=== PATIENT | female | born 1980 | race Caucasian/White ===

== ENCOUNTER 2022-01-25 09:58 | Outpatient (REF) | payer OTHER, SELFPAY ==
[2022-01-25 10:24] LABS: MANUAL DIFF FLAG NO
[2022-01-25 10:55] LABS: Basophils Absolute Auto 0.1 X10*3/uL (0.0-0.2); Basophils Percent Auto 0.8 % (0-2); Eosinophils Absolute Auto 0.2 X10*3/uL (0.0-0.4); Eosinophils Percent Auto 2.7 % (0-4); Hematocrit 36.3 % (37.0-47.0); Hemoglobin 12.6 g/dl (12.0-16.0); Imm Gran Abs Auto 0.02 X10*3/uL (0.00-0.03); Imm Gran Pct Auto 0.3 % (0.0-0.4); Lymphocytes Absolute Auto 2.1 X10*3/uL (1.2-4.9); Lymphocytes Percent Auto 26.4 % (20-40); Mean Corpuscular HGB Conc 34.7 g/dl (31.0-35.0); Mean Corpuscular Hemoglobin 30.3 pg (27.0-33.0); Mean Corpuscular Volume 87.3 fL (80.0-98.0); Mean Platelet Volume 9.3 fL (9.4-12.3); Monocytes Absolute Auto 0.4 X10*3/uL (0.1-1.2); Monocytes Percent Auto 5.3 % (2-11); Neutrophils Absolute Auto 5.1 x10*3/uL (2.0-8.3); Neutrophils Percent Auto 64.5 % (45-73); Platelet Count 373 X10*3/uL (160-400); Red Blood Count 4.16 X10*6/uL (4.20-5.50); Red Cell Distribution Width 11.5 % (11.0-16.0); White Blood Count 7.9 X10*3/uL (4.8-10.8)
[2022-01-25 11:32] LABS: Erythrocyte Sedimentation Rate 16 MM/HR (0-20)
[2022-01-25 12:10] LABS: Folate 15.5 ng/mL (> or = 4.0); Vitamin B12 247 pg/mL (200-900)
[2022-01-25 12:14] LABS: Alanine Aminotransferase 14 U/L (0-31); Albumin Level 4.4 g/dL (3.5-5.0); Alkaline Phosphatase 49 U/L (39-117); Anion Gap 17 (12-20); Aspartate Amino Transferase 17 U/L (5-31); Bilirubin Direct < 0.2 mg/dL (0.0-0.5); Bilirubin Total 0.3 mg/dL (0.0-1.0); Blood Urea Nitrogen 16 mg/dL (9-16); Calcium 9.7 mg/dL (8.4-10.2); Carbon Dioxide 23 mmol/L (22-29); Chloride 103 mmol/L (96-108); Estimated Glomerular Filt Rate > 60; Glucose Random 104 mg/dL (60-115); Potassium 4.7 mmol/L (3.3-5.1); Sodium 138 mmol/L (135-145); Total Protein 7.1 g/dL (6.5-8.0)
[2022-01-27 17:06] LABS: Lyme Abs Screen <0.90 index
[2022-01-31 15:42] LABS: Anti Nuclear Antibody Screen POSITIVE (NEGATIVE)
[2022-02-01 10:22] LABS: IgA 145 mg/dL (47-310); IgG 827 mg/dL (600-1640); IgM 81 mg/dL (50-300)
== END 2022-01-25 09:59 | disposition home or self-care (01) ==
LOC: HO.LAB 09:58
PROVIDERS: PCP Family Medicine; Visit Provider Psychiatry & Neurology Neurology
DX: G62.9 Polyneuropathy, unspecified (principal)
CPT/HCPCS: 36415; 80048; 80076; 82607; 82746; 82784; 85025; 85652; 86038; 86039; 86334; 86617; 86618

== ENCOUNTER 2022-02-23 09:33 | Day surgery (SDC) | payer OTHER, SELFPAY ==
[2022-02-23] VITALS (9 sets, daily range): BP systolic 126–143; BP diastolic 80–99; PULSE 61–81; RESP 16–18; TEMP 36.3–37; O2SAT 97–100; BMI 25.8
--- NOTE | ~2022-02-23 | FL_ITS ---
EXAMINATION: XR LUMBAR PUNCTURE CLINICAL INFORMATION: Peripheral neuropathy. COMPARISON: None TECHNIQUE: Following explaining fluoroscopy-guided lumbar puncture procedure, benefits and risks, indications and was obtained. Patient was placed prone on fluoroscopy table and optimal site was selected by placing a marker at the L4-L5 disc level. The posterior lumbar area was cleaned and draped in the usual sterile manner with 2% chlorhexidine solution. 1% lidocaine was injected puncture site overlying the L4-L5 disc level. A 22-gauge spinal needle was advanced from the skin intrathecally at the L4-L5 disc level. After removing the stylet and observing CSF return patient was quickly placed in left lateral decubitus view and opening CSF pressure was obtained. Clear CSF fluid was collected in 4 test tubes. Postprocedure stylet was reintroduced and needle withdrawn. Complete hemostasis achieved at puncture site. Sterile Band-Aid applied postprocedure. FINDINGS: On solitary major obtained of lumbar spine the vertebral heights, alignment and disc heights are normal. No fracture or lytic or sclerotic process seen. SI joints are symmetrical and normal. The The opening CSF pressure measures 9 cm of water. Approximately 9.7 mL of clear CSF fluid was collected in 4 test tubes and sent to lab. FLUOROSCOPY TIME: 0.3 minutes DOSE AREA PRODUCT: 1.827 uGy-m2 (microgray-meter squared) FL/FL guided lumbar puncture LP IMPRESSION: Successful fluoroscopy-guided lumbar puncture performed at L4-L5 disc levels without immediate complications.
[2022-02-23 10:06] LABS: MANUAL DIFF FLAG NO
[2022-02-23 10:07] LABS: Basophils Absolute Auto 0.1 X10*3/uL (0.0-0.2); Basophils Percent Auto 0.3 % (0-2); Eosinophils Percent Auto 0.3 % (0-4); Hematocrit 34.8 % (37.0-47.0); Hemoglobin 12.1 g/dl (12.0-16.0); Imm Gran Abs Auto 0.09 X10*3/uL (0.00-0.03); Imm Gran Pct Auto 0.6 % (0.0-0.4); Lymphocytes Absolute Auto 2.9 X10*3/uL (1.2-4.9); Lymphocytes Percent Auto 20.1 % (20-40); Mean Corpuscular HGB Conc 34.8 g/dl (31.0-35.0); Mean Corpuscular Hemoglobin 30.3 pg (27.0-33.0); Mean Platelet Volume 9.2 fL (9.4-12.3); Monocytes Percent Auto 7.1 % (2-11); Neutrophils Absolute Auto 10.3 x10*3/uL (2.0-8.3); Neutrophils Percent Auto 71.6 % (45-73); Platelet Count 339 X10*3/uL (160-400); Red Cell Distribution Width 11.5 % (11.0-16.0); White Blood Count 14.4 X10*3/uL (4.8-10.8)
[2022-02-23 10:13] LABS: INTERNATIONAL NORM RATIO 0.9 (0.9-1.1)
[2022-02-23 11:32] LABS: UPreg QC Valid YES; Urine Pregnancy NEGATIVE (NEGATIVE)
[2022-02-23 14:21] LABS: Glucose CSF 72 mg/dL; Total Protein CSF 78.4 mg/dL (15-45)
[2022-02-23 14:25] LABS: Appearance CSF CLEAR; CSF Tube # 4; Color CSF COLORLESS; White Blood Cell CSF 4 MM*3
[2022-02-23 14:26] LABS: CSF Monos 10 %; CSF Other Cells % 0 %; Lymphocytes CSF 90 %; Neutrophils CSF 0 %; Red Blood Cell CSF 0 MM*3
[2022-02-23 14:45] LABS: CSF Appearance Clear, Colorless; CSF Tube # 1
[2022-02-27 00:06] LABS: Albumin, CSF 53.8 mg/dL (8.0-42.0); IgG 750 mg/dL (600-1640); IgG Synthesis Rate 2.2 mg/24 h (-9.9-3.3); IgG, CSF 5.4 mg/dL (0.8-7.7)
== END 2022-02-23 15:50 | disposition home or self-care (01) ==
PROVIDERS: Radiology Diagnostic Radiology; PCP Family Medicine; Visit Provider Radiology Diagnostic Radiology
PROC: 009U3ZZ Drainage of Spinal Canal, Percutaneous Approach (ICD-10-PCS; CPT 62270; principal; 2022-02-23 11:00)
DX: G62.9 Polyneuropathy, unspecified (principal); R20.2 Paresthesia of skin; R26.2 Difficulty in walking, not elsewhere classified; J45.909 Unspecified asthma, uncomplicated; F41.8 Other specified anxiety disorders; G47.00 Insomnia, unspecified; G43.909 Migraine, unspecified, not intractable, without status migrainosus; Z86.16 Personal history of COVID-19; Z79.899 Other long term (current) drug therapy; Z88.0 Allergy status to penicillin
CPT/HCPCS: 36415; 62328; 81025; 82042; 82945; 83916; 84157; 85025; 85610; 85730; 87015; 87070; 87205; 89051; Q9967

== ENCOUNTER 2022-03-23 09:55 | Outpatient (REF) | payer OTHER, SELFPAY ==
[2022-03-23 18:13] LABS: Blood Urea Nitrogen 11 mg/dL (9-16); Estimated Glomerular Filt Rate > 60
== END 2022-03-23 09:56 | disposition home or self-care (01) ==
LOC: HO.LAB 09:55
PROVIDERS: PCP Family Medicine; Visit Provider Psychiatry & Neurology Neurology
DX: G61.81 Chronic inflammatory demyelinating polyneuritis (principal)
CPT/HCPCS: 36415; 82565; 84520

== ENCOUNTER 2022-05-01 11:16 | Outpatient (REF) | payer OTHER, SELFPAY | END 2022-05-01 11:17 | disposition home or self-care (01) | LOC: HO.MDS 11:16 | PROVIDERS: Visit Provider Psychiatry & Neurology Neurology | DX: G61.81 Chronic inflammatory demyelinating polyneuritis (principal) | CPT/HCPCS: 96365; 96366; J1569 ==

== ENCOUNTER 2022-05-02 09:57 | Outpatient (REF) | payer OTHER, SELFPAY | END 2022-05-02 09:58 | disposition home or self-care (01) | LOC: HO.MDS 09:57 | PROVIDERS: Visit Provider Psychiatry & Neurology Neurology | DX: G61.81 Chronic inflammatory demyelinating polyneuritis (principal) | CPT/HCPCS: 96365; 96366; J1569 ==

== ENCOUNTER 2022-05-09 10:19 | Outpatient (REF) | payer OTHER, SELFPAY | END 2022-05-09 10:20 | disposition home or self-care (01) | LOC: HO.MDS 10:19 | PROVIDERS: Visit Provider Psychiatry & Neurology Neurology | DX: G61.81 Chronic inflammatory demyelinating polyneuritis (principal) | CPT/HCPCS: 96365; 96366; J1569 ==

== ENCOUNTER 2022-05-10 10:26 | Outpatient (REF) | payer OTHER, SELFPAY | END 2022-05-10 10:27 | disposition home or self-care (01) | LOC: HO.MDS 10:26 | PROVIDERS: Visit Provider Psychiatry & Neurology Neurology | DX: G61.81 Chronic inflammatory demyelinating polyneuritis (principal) | CPT/HCPCS: 96365; 96366; J1569 ==

== ENCOUNTER 2022-12-08 12:49 | Outpatient (REF) | payer OTHER, SELFPAY ==
[2022-12-08 14:24] LABS: Blood Urea Nitrogen 9 mg/dL (9-16); Estimated Glomerular Filt Rate > 60
== END 2022-12-08 12:50 | disposition home or self-care (01) ==
LOC: HO.LAB 12:49
PROVIDERS: PCP Family Medicine; Visit Provider Psychiatry & Neurology Neurology
DX: G61.81 Chronic inflammatory demyelinating polyneuritis (principal)
CPT/HCPCS: 36415; 82565; 84520

== ENCOUNTER 2024-06-16 10:14 | Outpatient (REF) | payer OTHER, SELFPAY ==
--- NOTE | ~2024-06-16 | MR_ITS ---
EXAMINATION: MR BRAIN WITHOUT AND WITH CONTRAST CLINICAL INFORMATION: Trigeminal neuralgia COMPARISON: None available. TECHNIQUE: Multiplanar, multisequence MRI of the brain was obtained before and after the intravenous administration of 7.5 mL Gadavist. FINDINGS: There is no restricted diffusion to suspect any acute or subacute ischemic changes. No magnetic susceptibility artifact either to suspect any acute or chronic hemorrhagic products or calcification. No evidence of T2 FLAIR foci that. Normal flow-void signal seen in major cerebral vasculature. Lateral ventricles are symmetrical in size and configuration without enlargement. Base of the skull reveals normal symmetry of fifth metatarsal with normal-appearing Meckel's cave. No abnormal enhancement seen in the CP angle, aaron or the Meckel's cave region. No abnormal enhancement along the skull base either. No mass or mass effect seen along the oropharynx either. Visualized optic globe, optic nerve and the periorbital soft tissues are unremarkable. Sella and parasellar regions are unremarkable. MR/MR head/brain wo/w con IMPRESSION: Unremarkable MRI brain without and with contrast. Electronically signed by: Mervin Templeton MD 06/16/2024 12:53 PM EST
[2024-06-16] MEDS: gadobutroL 7.5 ML VIAL IVPUSH (11:27)
--- OUTSIDE RECORDS SUMMARY | 2024-06-16 11:48 | XMS_ITS | Continuity of Care Document ---
Author Organization [facility], Main Office Address [address] [facility] [address] [place] [address] Care Team Providers Care Employment Program Representative Name Role Phone SALLY HAND Primary Care Provider [facility] Continuity Coordinator [facility] Sleep Medi cine ALPA PABLO Neurologist AYALA CONWAY Apprentice Embalmer [place] [address] WOMEN? 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 Plan of Treatment Reminders Order Date Submit Date Provider Last Modified By Organization Details Last Modified Time Details Appointments FOLLOW UP 30MIN 2024 03:30P M Sally Hand MD Not available Not available Not available Lab None recorded. Referral None recorded. Procedures None recorded. Surgeries None recorded. Imaging None recorded. Medication Orders escitalop myriam 10 mg tablet 2024 025 [facility]acy #[id number], [address] [place], [address], 05/27/2024 09:49:44 Patient TargetsNo targets recorded. Patient Instructions Encounter Date Encounter Id Patient Instructions Last Modified By Organization Details Last Modified Time 05/27/2024 [id number] Medications (OTC , herbal therapies, supplements) reviewed and reconciled with patient and or caregiver, including potential side effects, drug interactions, instructions, and the consequences of not taking medication. Reviewed potential barriers to medication adherence, such as side effects from medication or cost of medication. [email or web address] Not available 05/27/2024 09:29:06 Reason for Referral None Reported. Problems Name Problem SNOMED Code Status Onset Date Resolution Date Notes Provider Name and Address Organization Details Recorded Time Mixed anxiety and depressiv e disorder 771599932 Active 2021 Sally Hand MD [address] [facility] [address], [place], [address], [facility] 2 17:34:23 History of SARS-CoV- 2 50956502625 5907988 Active 2021 Roger Ramirez MA null, [facility] 2 13:21:21 History of calculus of kidney 236515157 Active 2012 Yaquelin ventura MA null, [facility] 2 13:35:13 Repair of umbilical hernia Completed 201106/16/2022 Sally Hand MD [address] [facility] [address], [place], [address], [facility] 3 12:46:51 Asthma 607464840 Active 2021 Sally Hand MD [address] [facility] [address], [place], [address], [facility] 2 13:52:54 Acute inflammat ory demyelina ting polyneuro florentino 62241130683 109 Completed 202106/16/2022 Sally Hand MD [address] 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 294739927 Active 2022 Sally Hand MD [address] [facility] [address], [place], [address], [facility] 3 12:46:10 History of repair of umbilical hernia 745110675 Active 2022 Sally Hand MD [address], [place], [address], [facility] 3 12:46:46 Acute on chronic pancreati tis 459884821 Completed 202209/22/2023 Sally Hand MD [address], [place], [address], [facility] 4 17:11:49 Alcohol dependenc e 17108503 Completed 202209/22/2023 Sally Hand MD [address], [place], [address], [facility] 4 17:11:23 Generaliz ed onset epileptic seizure 598518003 Active 2022 Sally Hand MD [address], [place], [address], [facility] 3 12:47:22 Essential hypertens ion 11153160 Active 2022 Sally Hand MD [address], [place], [address], [facility] 3 12:56:00 Subclinic al hypothyro idism 54922806 Active 2022 Sally Hand MD [address], [place], [address], [facility] 3 16:48:21 Neuropath y 636503277 Active 2022 Sally Hand MD [address], [place], [address], [facility] 3 16:52:53 Body mass index 30+ - obesity 810184382 Completed 202209/22/2023 Sally aHnd MD [address], [place], [address], [facility] 4 17:12:05 Obesity 955486621 Completed 202209/22/2023 Sally Hand MD [address] [facility] [address], [place], [address], [facility] 4 17:13:01 Thyroid nodule 712335534 Active 2023 Sally Hand MD [address] [facility] [address], [place], [address], [facility] 4 19:57:28 History of deliberat e self harm 607855028 Active 2023 Sally Hand MD [address] [facility] [address], [place], [address], [facility] 4 17:08:03 Chronic alcoholis m in remission 146977469 Active 2023 Sally Hand MD [address] [facility] [address], [place], [address], [facility] 4 17:11:07 History of pancreati tis 27972590333 107 Active 2023 Sally Hand MD [address] [facility] [address], [place], [address], [facility] 4 17:11:47 Disorder of autonomic nervous system 55058324 Active [address] cyndi Poole PA-C [address] [facility] [address], [place], [address], [facility] 4 16:18:30 Abnormal liver function 62296822 Completed 202312/28/2023 Sally Hand MD [address] [facility] [address] [place], [address], [facility] 4 10:57:35 Unintenti onal weight loss 948142601 Completed 202312/28/2023 Sally Hand MD [address] [facility] [address], [place], [address], [facility] 4 11:02:15 Abnormal feces 347575132 Completed 202312/28/2023 Sally Hand MD [address], [place], [address], [facility] 4 10:57:09 Electroni c cigarette user 111680301 Active 2023 Sally Hand MD [address], [place], [address], [facility] 4 11:02:46 Problem Notes None recorded. Procedures Surgical History Date Name Laterality Status Provider Name and Address Organization Details Recorded Time 05/17/19 24 endoscopic endometrial polypectomy completed Sally Hand MD [address], [place], [address], [facility] 12/28/2023 11:09:10 01/26/20 23 Most Recent Mammogram completed Joceline Bingham [facility] 01/26/2023 11:36:23 10/31/19 23 procedure on vein completed Yaquelin heart MA [facility] 05/01/2023 15:59:50 03/18/20 13 Caesarean Section completed Rgoer Ramirez MA [facility] 09/27/2021 13:13:08 07/16/19 13 Hernia Repair completed Roger Ramirez MA [facility] 09/27/2021 13:13:08 11/15/19 07 Tonsillectomy completed Roger Ramirez MA [facility] 09/27/2021 13:13:08 11/15/19 06 Adenoidectomy completed Roger Ramirez MA [facility] 09/27/2021 13:13:08 Imaging Results None recorded. Procedure Notes None recorded. Medical Equipment None Reported. Allergies Allergen ID Allergen Name Allergen Category Reaction Reaction Severity Criticality Documentation Date Start Date Code Code System Note Provider Name and Address Organization Details Recorded Time 25697 Product containin g penicilli n (product) medicatio n rash Not available Not available 09/27/2021 13658 8001 SNOMED Roger Ramirez MA [facility] 2 13:11:47 Medications Name Sig Start Date Stop Date Status Note LastModified by Organization Details LastModified Time folic acid 400 mcg tabs 12/27 completed ON HOLD Not Available Not Available Not Available feverfew 500 mg capsule Take 1 capsule every day by oral route. 12/27 completed Not Available Not Available Not Available tizanidin e 2 mg tablet TAKE 2-3 TABLETS ORALLY A DAY PRN 09/20 completed Not Available Not Available Not Available ondansetr on HCl 8 mg tablet TAKE 1 TABLET BY MOUTH EVERY DAY NEEDED FOR NAUSEA AND VOMITING 11/29 completed Not Available Not Available Not Available famotidin e 40 mg tablet Take 1 tablet every day by oral route before meal(s) for 90 days. active Not Available Not Available No t Available prednison e 20 mg tablet TAKE 1 TABLET BY MOUTH TWICE A DAY FOR 90 DAYS 06/16 completed Not Available Not Available Not Available hydroxyzi ne HCl 50 mg tablet TAKE 1 TABLET BY MOUTH THREE TIMES A DAY NEEDED 08/12 completed Not Available Not Available Not Available folic acid 400 mcg tablet TAKE 1 TABLET BY MOUTH EVERY DAY FOR 30 DAYS 10/31 completed Not Available Not Available Not Available sulfameth oxazole 800 mg-trimet hoprim 160 mg tablet TAKE 1 TABLET BY MOUTH EVERY 12 HOURS FOR 10 DAYS 09/01 completed Not Available Not Available Not Available lidocaine -prilocai ne 2.5 %-2.5 % topical cream 10/31 completed Not Available Not Available Not Available baclofen 20 mg tablet Take 1 tablet as needed by oral route at bedtime for 30 days. 09/20 completed Not Available Not Available Not Available mycopheno late mofetil 500 mg tablet TAKE 1 TABLET BY MOUTH TWICE A DAY FOR 30 DAYS 10/31 completed from neuro Not Available Not Available Not Available carbamaze pine 200 mg tablet TAKE 1 TABLET BY MOUTH TWICE A DAY FOR 30 DAYS active Not Available Not Available No t Available famotidin e 20 mg tablet Take 1 tablet every day by oral route as needed. 12/23 completed Not Available Not Available Not Available benzonata te 100 mg capsule TAKE 1 CAPSULE BY MOUTH THREE TIMES A DAY FOR 5 DAYS 07/16 completed Not Available Not Available Not Available promethaz ine 25 mg tablet TAKE 1 TABLET BY MOUTH THREE TIMES A DAY NEEDED FOR NAUSEA/V OMITING 09/27 completed Not Available Not Available Not Available bupropion HCl 75 mg tablet 05/27 completed Not Available Not Available Not Available black cohosh root extract 40 mg capsule Take 2 capsules every day by oral route. 12/27 completed ON HOLD Not Available Not Available Not Available gabapenti n 300 mg capsule TAKE ONE CAPSULE BY MOUTH AT BEDTIME FOR 30 DAYS 12/27 completed ON HOLD Not Available Not Available Not Available sertralin e 25 mg tablet TAKE 1 TABLET BY MOUTH EVERY DAY FOR 30 DAYS 06/16 completed Not Available Not Available Not Available hydroxyzi ne HCl 25 mg tablet TAKE 1 TABLET BY MOUTH THREE TIMES A DAY NEEDED FOR 7 DAYS 11/29 completed Not Available Not Available Not Available metoprolo l succinate ER 25 mg tablet,ex tended release 24 hr TAKE 1 TABLET BY MOUTH EVERY DAY 08/12 completed Not Available Not Available Not Available epinephri ne 0.3 mg/0.3 mL injection , auto-inje ctor prn active Not Available Not Available Not Available albuterol sulfate HFA 90 mcg/actua tion aerosol inhaler INHALE 2 PUFFS INTO THE LUNGS EVERY 4 HOURS NEEDED FOR 30 DAYS active Not Available Not Available No t Available cefdinir 300 mg capsule 10/31 completed Not Available Not Available Not Available sertralin e 50 mg tablet Take 1 tablet every day by oral route for 90 days. 06/16 completed Not Available Not Available Not Available vitamin B complex capsule TAKE 1 CAPSULE BY MOUTH EVERY DAY 12/27 completed ON HOLD Not Available Not Available Not Available inositol 650 mg tablet Take 1 tablet every day by oral route. 12/27 completed ON HOLD Not Available Not Available Not Available escitalop myriam 10 mg tablet TAKE 1 TABLET BY MOUTH EVERY DAY FOR 30 DAYS active Not Available Not Available No t Available valsartan 40 mg tablet TAKE 1 TABLET BY MOUTH EVERY DAY 08/12 completed Not Available Not Available Not Available cyclobenz aprine 5 mg tablet TAKE 1 TABLET BY MOUTH THREE TIMES A DAY NEEDED FOR 10 DAYS active Not Available Not Available No t Available bupropion HCl XL 150 mg 24 hr tablet, extended release TAKE 1 TABLET BY MOUTH EVERY DAY FOR 30 DAYS 08/12 completed Not Available Not Available Not Available duloxetin e 20 mg capsule,d elayed release TAKE 1 CAPSULE BY MOUTH TWICE A DAY FOR 30 DAYS 10/31 completed Not Available Not Available Not Available duloxetin e 60 mg capsule,d elayed release TAKE 1 CAPSULE BY MOUTH EVERY DAY 08/12 completed Not Available Not Available Not Available pregabali n 50 mg capsule TAKE 1 CAPSULE BY MOUTH TWICE A DAY FOR 30 DAYS 12/27 completed ON HOLD Not Available Not Available Not Available Gammagard Liquid 100ml active Not Available Not Available Not Available evening primrose oil-linol eic acid-gamo lenic acid 1,000 mg capsule Take 1 capsule every day by oral route. 12/27 completed ON HOLD Not Available Not Available Not Available vitamin B complex-v itamin C-folic acid 400 mcg tablet TAKE 1 TABLET BY MOUTH EVERY DAY 02/08 completed Not Available Not Available Not Available Vitamin D3 125 mcg (5,000 unit) tablet Take 1 tablet every day by oral route. 12/27 completed ON HOLD Not Available Not Available Not Available vitamin E (dl, acetate) 90 mg (200 unit) capsule Take 1 capsule every day by oral route. 12/27 completed ON HOLD Not Available Not Available Not Available duloxetin e 40 mg capsule,d elayed release Take 1 capsule every day by oral route at bedtime for 30 days. 12/05 completed Not Available Not Available Not Available Liver Complex 2 capsules po daily 12/27 completed contains milk thistle, dandelio n root, parsley, burdock root, black radish root, TMG, NAC, alpha lipoic acid Not Available Not Available Not Available Aspercrem e (lidocain e HCl) 4 % topical Apply 1 applicat ion as needed by topical route as directed . 12/25 completed Not Available Not Available Not Available turmeric 720 mg capsules - 2 po daily 12/27 completed ON HOLD Not Available Not Available Not Available luciana kaur extract 1300 mg capsules - 1 po daily 12/27 completed ON HOLD Not Available Not Available Not Available Vitals Date Recorded Body height Body mass index (BMI) Body weight Oxygen saturation Oxygen saturation in Arterial blood by Pulse oximetry Heart rate Body temperature Systolic blood pressure Diastolic blood pressure Provider Name and Address Organization Details Last Updated DateTime 5 163.83 cm 28.3 kg/m2 21373.3 3 g 98 % 98 % 79 /min 98.3 [degF] 117 mm[Hg] 77 mm[Hg] Leonila Ferrer MA [facility] 5 09:23:12 Social History Question Answer Notes LastModified by Organizat ion Details LastModified Time Tobacco Smoking Status [facility] 14:42:31 What Is Your Level Of Alcohol Consumption? None No Alcohol Since 09/19/21 Information not available 12/23/2021 Is Blood Transfusion Acceptable In An Emergency? Yes Information not available 09/27/2021 What Is Your Level Of Caffeine Consumption? Moderate 2-3 Cups Of Coffee Daily Information not available 12/25/2022 How Much Tobacco Do You Chew? None Information not available 09/27/2021 Are You Currently Employed? No Information not available 09/27/2021 What Type Of Diet Are You Following? REGULAR Information not available 09/27/2021 Which Illicit Or Recreational Drugs Have You Used? Marijuana Gummy For Sleep Information not available 12/25/2022 Do You Or Have You Ever Used E-cigarettes Or Vape? 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 1-5yearssince lastcigarette Information not available 12/23/2021 Do You Take Precautions To Prevent Distracted Driving? Yes Information not available 09/27/2021 How Often Do You Need To Have Someone Help You When You Read Instructions, Pamphlets, Or Other Written Material From Your Doctor Or Pharmacy? Never Information not available 09/27/2021 Have You Served In The ? No Information not available 09/27/2021 How Many Children Do You Have? 2 Diego Information not available 12/23/2021 What Is Your Current Pack Years? 10packyears [email or web address] Information not available 12/23/2021 Do You Use Protection During Sex? No Information not available 09/27/2021 Do You Use Your Seat Belt Or Car Seat Routinely? Yes Information not available 09/27/2021 Are You Sexually Active? Yes Information not available 09/27/2021 Do You Have Smoke And Carbon Monoxide Detectors In Your Home? Yes Information not available 09/27/2021 At What Age Did You Start Smoking Tobacco? 20 Quit Age 37 Information not available 12/23/2021 Are You Passively Exposed To Smoke? No Information not available 09/27/2021 Do You Or Have You Ever Used Smokeless Tobacco? Never Used Smokeless Tobacco Information not available 09/27/2021 How Much Tobacco Do You Smoke? 0.25 PPD Information not available 09/27/2021 Do You Use Any Illicit Or Recreational Drugs? Yes [email or web address] Information not available 12/23/2021 Do You Use Sunscreen Routinely? Yes Information not available 09/27/2021 How Many Years Have You Smoked Tobacco? 17 Information not available 12/23/2021 Do You Or Have You Ever Used Any Other Forms Of Tobacco Or Nicotine? Yes [email or web address] Information not available 12/23/2021 How Many Years Have You Used E-cigarettes Or Vape? 3 Since Age 39 Information not available 12/25/2022 Sex: Unknown Functional Status Question Answer Note LastModified by Organizat ion Details LastModified Time Are you able to walk? YESWOREST Information not available 06/16/2022 Are you able to care for yourself? Yes Information not available 09/27/2021 What is your exercise level? Occasional walking daily on treadmill at home Information not available 12/25/2022 Mental Status None recorded. Family History Relationship Description Onset Age of this Age Resolved Age Notes LastModified by Organization Details LastModified Time Maternal Grandmother Multiple sclerosis [email or web address] Not available 2021 13:13:07 Mother Anxiety disorder [email or web address] Not available 2021 13:13:07 Mother Depressive disorder [email or web address] s Not available 09/27/2021 13:34:35 Father Anxiety disorder [email or web address] Not available 2021 13:13:07 Father Obesity [email or web address] Not available 0 09/27/2021 13:13:07 Father Heart disease [email or web address] Not available 2021 13:13:07 Father Depressive disorder [email or web address] s Not available 09/27/2021 13:34:35 Father Essential hypertension Not available 14:23:12 Medical History Condition Response Diabetes Y Anxiety Disorder Y Varicose Veins Y Depression Y Hypothyroidism Y Anemia Y Chicken Pox Y Gynecological History Statement/Question Response Date of Last Pap Smear Date of Last Colonoscopy Most Recent Mammogram 01/25/2023 Most Recent Bone Density Obstetrics History GPAL:G 0 P 0 0 0 0 Immunizations Vaccine Type Date Status Note Provider Name and Address Organization Details Recorded Time COVID-19, mRNA, LNP-S, PF, 30 mcg/0.3 mL dose 08/14/19 21 completed ANDI Castrejon [facility] 09/27/2021 13:12:19 Tdap 09/03/19 20 completed ANDI Castrejon, [facility] 09/27/2021 13:12:19 COVID-19, mRNA, LNP-S, PF, 30 mcg/0.3 mL dose 09/05/19 21 completed ANDI Castrejon [facility] 09/27/2021 13:12:19 Influenza, split virus, trivalent, preservative 01/09/20 12 completed ANDI Castrejon [facility] 09/27/2021 13:12:19 Influenza, split virus, quadrivalent, PF 12/24/19 22 cancelled patient objection Sally Hand MD [address] [facility] [facility] [address], [place], [address], [facility] 12/23/2021 15:12:49 Past Encounters Encounter ID Performer Location Encounter Start Date Encounter Closed Date Diagnosis/Indication Diagnosis SNOMED-CT Code Diagnosis ICD10 Code Diagnosis Note [id number] Bear Virgilio WOOTEN Main Office [address] [facility] [address] [place] [address] 05/27/2024 09:06:00 05/27/2024 09:51:32 Mixed anxiety and depressive disorder 657600159 F41.8 In the process to establish with psych again, she left stepping stone. denies active thoughts of self harm or harming others. 2.25 - pt scored severe on brenda/phqsee n by Dr. 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 [id number] Jim Murray [id number] Olimpia Murray Notes Date Note Type Note Provider Name and Address Organization Details Recorded Time 05/27/2024 text/html Anxiety/Depressi on Reported bypatient.Quality: mood worse;increased anxiety Severity:denies suicidal ideations Context:major life stressors Associated Symptoms:denies homicidal ideations as per recent pt case:Good morning Dr. Hand,I really need to start a new medication for my depression and anxiety. I was finally diagnosed with ADD by Dr. Pablo 04/10. I started wellbutrin 75mg 2/day and am weaning off because it has made my mood worse. I see him next week about the ADD medication, but I need something to fix this crippling depression and anxiety.Thank you,Olimpia Murray reviewed chart - referred to dr emmanuel - seen once, did not wish to go back to him has been off wellbutrin x 8 dayshas been on psychiatric meds in past - recalls taking duloxetine in past - no recall SE x ? had increased lfts, took sertraline yrs ago - ? if had SE Bear Poole PA-C [id number] [address], [place], [address], [facility] 05/27/2024 09:53:11 OBGyn Episode No OBEpisode recorded.
--- OUTSIDE RECORDS SUMMARY | 2024-06-16 11:48 | XMS_ITS | Data Portability ---
Author Organization [facility], Main Office Address [address] [facility] [address] [place] [address] Care Team Providers Care Pilot Highway Patrol Name Role Phone AMARA HAND Primary Care Provider [facility] Cathode Maker [phone] [facility] Sleep Medi cine ALPA PABLO Neurologist AYALA CONWAY Work Ticket Distributor [phone] [facility] Gusset Edger JAROCHO MARIO Vascular Surgeon [facility] Business Functional Analyst Assessment Encounter Date Assessment Date Assessment LastModified by Organization Details LastModified Time 09/21/2023 09/21/2023 I will ask Tram spain to take a at home test to rule out , although the likelihood is low given that she feels she may be in a perimenopausal state. She has reported using marijuana, and I have advised her to reduce her usage due to the potential risk of cannabinoid-induced hyperemesis. I have also asked her to stop all supplementation for now, as her liver function tests (LFTs) are elevated and the supplements may be exacerbating her nausea. Given the cessation of duloxetine, it is likely contributing to her increased anxiety and possibly worsening her neuropathic pain. She is currently on gabapentin, and will discuss with her neurologist the possibility of adjusting the dosage or switching to Lyrica. Unfortunately, we tapered her off duloxetine slowly, and her increased anxiety may be directly related to discontinuing this medication. I offered her a different regimen, but she declined and informed me that she will be consulting with a psychiatrist at [facility]. During the examination, I observed some wrist slitting, which she acknowledged and mentioned that she has stopped and that the behaviour occurred last year. She confirmed that she does not have any thoughts of self-harm or harming others at present. She also reported that she has been alcohol-free since December of last year. 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 I also noted some epigastric pain during the examination, which might indicate gastritis, although she feels her abdominal pain has improved. I prescribed famotidine 40 mg, and if her symptoms do not improve, I advised considering [id number] proton pump inhibitors (PPIs) for 14 days. I have also requested that she repeat her LFTs in two weeks to ensure the levels are trending downward and that she remains off all supplementation, except for vitamin D, B complex, and folic acid. I offered to refer her to a tool chaser given her weight loss and nausea, but she declined. I let her know that she can reach out to me immediately to arrange this if she changes her mind. It will be interesting to see if her symptoms improve after discontinuing all the supplementation she has been taking and whether her appetite improves. Olimpia denies any vomiting and reports one episode of diarrhea that has resolved. I have spent 45 minutes on this encounter. The time documented represents time spent on the day of the encounter preparing for and completing the visit. Time spent performing a physical exam, obtaining history from the patient, counseling/educating the patient in possible diagnosis and treatment options. This time is independent of any additional procedures/diagnosti c testing/interpretati ons. bri Not available 09/22/2023 17:14:08 01/24/2024 01/24/2024 Discussed with patient the signs/symptoms warranted for a return to office visit and/or an ER visit. Patient understood and agreed with the plan. Not available 01/24/2024 11:12:07 Plan of Treatment Reminders Order Date Submit Date Provider Last Modified By Organization Details Last Modified Time Details Appointments FOLL OW UP 30MI N 2024 03:30P M Amara Hand MD Not available Not available Not available Lab ed[facility] charles 2023 024 [email or web address] [facility], [address], [address], [place], [address], 01/22/2024 09:26:19 magn esiu m, seru m or plas ma 2023 024 LESLY [facility] (Centralized Electronic Ordering - All Locations), Patient Can Go To The Location Of Their Choice, [id number] 01/15/2024 03:13:21 CMP, seru m or plas ma 2023 024 LESLY [facility] (Centralized Electronic Ordering - All Locations), Patient Can Go To The Location Of Their Choice, [id number] 01/15/2024 03:13:21 prea lbum in, seru m 2023 024 LESLY [facility] (Centralized Electronic Ordering - All Locations), Patient Can Go To The Location Of Their Choice, [id number] 11/10/2023 06:08:11 vince ac dise ase sero logy pane l, seru m 2023 024 M[place] [facility] (Centralized Electronic Ordering - All Locations), Patient Can Go To The Location Of Their Choice, [id number] 11/10/2023 06:08:10 Referral phys ical ther apis t refe rral - adarsh t elbo w pain 2023 024 [email or web address] [facility], [address] [facility], [address], [place], [address], 02/21/2024 08:59:41 psyc hiat rist refe rral 2023 024 [email or web address] [facility], [address], [address], [place], [address], 12/28/2023 11:29:[address] refe rral - plea se eval for abno rmal fece s, elev ated live r enzy mes, gerd , unin tent jalen l wt loss - than k you! 2023 024 [facility], [address] [place] [address] Dr, [address], [place], [address], 06/03/2024 09:34:20 psyc hiat rist refe rral 2023 024 chuckie Not available 09/21/2023 15:45:20 Procedures None an rded . Surgeries None an rded . Imaging MAMM O, scre enin g, bila duane l - Perf orm Diag nost ic Mamm ogra m and [place] st Ultr asou nd if need ed / Perf orm Ultr asou nd Guid ed Aspi rati on and/ or Jenn st Biop sy if yeny ante d 2023 024 [email or web address] In-Office Order, Internal Use Only DO Not Attach Compendium DO Not Attach Compendium, Do Not Delete/merge, [id number] 12/28/2023 11:29:09 Medication Orders esci talo pram 10 mg tabl et 2024 025 [facility]armacy #[id number], [address] [place] [address], [address], 05/27/2024 09:49:44 cycl oben zapr ine 5 mg tabl et 2023 025 [facility]/Pharmacy #[id number], [address] [place], [address], 05/27/2024 09:23:54 famo tidi ne 40 mg tabl et 2023 024 [facility] #[id number], [address] [place] [address], [address], 12/28/2023 10:35:00 Patient TargetsNo targets recorded. Patient Instructions Encounter Date Encounter Id Patient Instructions Last Modified By Organization Details Last Modified Time 09/21/2023 [id number] alcohol detoxification and withdrawal: care instructions [email or web address] Not available 09/22/2023 17:15:56 substance use disorder: care instructions ckokar Not available 09/22/2023 17:15:56 nausea and vomiting: care instructions ckokar Not available 09/21/2023 14:21:04 neuropathic pain : care instructions ckokar Not available 09/21/2023 14:21:04 10/31/2023 [id number] gluten-free diet : care instructions pmadden Not available 10/31/2023 16:29:02 Medications (OTC , herbal therapies, supplements) reviewed and reconciled with patient and or caregiver, including potential side effects, drug interactions, instructions, and the consequences of not taking medication. Reviewed potential barriers to medication adherence, such as side effects from medication or cost of medication. pmadden Not available 10/31/2023 16:18:02 12/28/2023 [id number] Well Visit, Ages 18 to 65: Care Instructions ckokar Not available 12/28/2023 11:14:23 medical record request* [email or web address] Not available 12/31/2023 09:37:26 epilepsy: care instructions ckokar Not available 12/28/2023 11:14:22 high blood pressure: care instructions ckokar Not available 12/28/2023 11:14:23 learning about high blood pressure ckokar Not available 12/28/2023 11:14:22 learning about mood disorders ckokar Not available 12/28/2023 11:14:22 01/24/2024 [id number] Patient understands usual risk, benefits and side effects. Not available 01/24/2024 12:59:55 05/27/2024 [id number] Medications (OTC , herbal therapies, supplements) reviewed and reconciled with patient and or caregiver, including potential side effects, drug interactions, instructions, and the consequences of not taking medication. Reviewed potential barriers to medication adherence, such as side effects from medication or cost of medication. [email or web address] Not available 05/27/2024 09:29:06 Reason for Referral Psychiatrist Referral for Mi xed anxiety and depressive disorder Referring Physician: [facility], Encounter Date: 09/21/2023 Work Ticket Distributor Referral for Abnormal feces please eval for abnormal feces, elevated liver enzymes, gerd, unintentional wt loss - thank you! Referring Physician: Bear Poole, Internal Medicine, Encounter Date: 10/31/2023 Psychiatrist Referral for Mo od disorder Referring Physician: [facility], Encounter Date: 12/28/2023 Physical Therapist Referral for Pain of right elbow joint right elbow pain Referring Physician: Bronwyn Mccarthy, [facility], Encounter Date: 01/24/2024 Results Created Date Observation Date Name Description Value Unit Range Abnormal Flag Note LastModifiedBy Organization Detail LastModifiedTime 09/11/19 24 09/11/2023 HEPAT IC FUNCT ION PANEL (7) protein, total 7.5 g/dL 6.0-8. 5 Not Available [facility] ([facility]) [address] [place], [address], 09/12/2023 06:07:21 09/11/19 24 09/11/2023 HEPAT IC FUNCT ION PANEL (7) albumin 4.2 g/dL 3.9-4. 9 Not Available [facility] ([facility]) [address] [place], [address], 09/12/2023 06:07:21 09/11/19 24 09/11/2023 HEPAT IC FUNCT ION PANEL (7) bilirubin, total 0.3 mg/dL 0.0-1. 2 Not Available [facility] ([facility]) [address] [place], [address], 09/12/2023 06:07:21 09/11/19 24 09/11/2023 HEPAT IC FUNCT ION PANEL (7) alkaline phosphatase 65 IU/L 44-121 Not Available [facility] ([facility]) [address] [place], [address], 09/12/2023 06:07:21 09/11/19 24 09/11/2023 HEPAT IC FUNCT ION PANEL (7) AST (SGOT) 133 IU/L 0-40 above high normal Not Available [facility] ([facility]) [address] [place], [address], 09/12/2023 06:07:21 09/11/19 24 09/11/2023 HEPAT IC FUNCT ION PANEL (7) ALT (SGPT) 169 IU/L 0-32 above high normal Not Available [facility] ([facility]) [address] [facility] [place], [address], 09/12/2023 06:07:21 09/11/19 24 09/12/2023 HEPAT IC FUNCT ION PANEL (7) bilirubin, direct <0.10 mg/dL 0.00-0 .40 Not Available [facility] ([facility]) [address] [facility], [place], [address], 09/12/2023 06:07:21 09/11/19 24 09/12/2023 PTH INTAC T+AMAYA CIUM, IONIZ ED calcium, ionized, serum 5.0 mg/dL 4.5-5. 6 Not Available [facility] ([facility]) [address] [facility] [place], [address], 09/13/2023 06:07:53 09/11/19 24 09/13/2023 PTH INTAC T+AMAYA CIUM, IONIZ ED PTH, intact 36 pg/mL 15-65 Not Available [facility] ([facility]) [address] [facility] [place], [address], 09/13/2023 06:07:53 09/11/1909/12/2023 VITAM IN D, 25-HY DROXY vitamin D, 25-hydroxy 19.9 NG/mL 30.0-1 00.0 below low normal Vitam in D defic iency has been defin ed by the Insti tute of Medic ine and an Endoc rine Socie ty pract ice guide line as a level of serum 25-OH vitam in D less than 20 ng/mL (1,2) . The Endoc rine Socie ty went on to furth er defin e vitam in D insuf ficie ncy as a level betwe en 21 and 29 ng/mL (2). 1. IOM (Inst itute of Medic ine). 2010. Dieta ry refer ence riccardo es for calci um and D. Katey diaz [place]: The Natio [facility] Press . 2. Mychal LEE, Michi ey [place], Bisch off-F comfort i KAUR, et al. Evalu ation , treat ment, and preve ntion of vitam in D defic iency : an Endoc rine Socie ty clini amaya pract ice guide line. JCEM. 2010; 96(7) :1911 -30. Not Available [facility] ([facility]) [address] [place], [address], 09/13/2023 06:07:54 09/11/19 24 09/12/2023 PHOSP HORUS phosphorus 2.8 mg/dL 3.0-4. 3 below low normal Not Available [facility] ([facility]) [address] [place], [address], 09/13/2023 06:07:54 09/11/19 24 09/12/2023 MAGNE SIUM magnesium 1.7 mg/dL 1.6-2. 3 Not Available [facility] ([facility]) [address] [place], [address], 09/13/2023 06:07:55 11/08/19 24 11/09/2023 TSH+F REE T4 TSH 4.050 uIU/m L 0.450- 4.500 normal Not Available [facility] ([facility]) [address] [place], [address], 11/09/2023 08:09:03 11/08/19 24 11/09/2023 TSH+F REE T4 T4,free(dire ct) 1.08 NG/dL 0.82-1 .77 normal Not Available [facility] ([facility]) [address] [place], [address], 11/09/2023 08:09:03 11/08/19 24 11/09/2023 HEPAT IC FUNCT ION PANEL (7) protein, total 6.8 g/dL 6.0-8. 5 normal Not Available [facility] ([facility]) [address] [place], [address], 11/09/2023 16:06:47 11/08/19 24 11/09/2023 HEPAT IC FUNCT ION PANEL (7) albumin 4.3 g/dL 3.9-4. 9 normal Not Available [facility] ([facility]) [address] [facility] [place], [address], 11/09/2023 16:06:47 11/08/19 24 11/09/2023 HEPAT IC FUNCT ION PANEL (7) bilirubin, total <0.2 mg/dL 0.0-1. 2 Not Available [facility] ([facility]) [address] [place], [address], 11/09/2023 16:06:47 11/08/19 24 11/09/2023 HEPAT IC FUNCT ION PANEL (7) bilirubin, direct <0.10 mg/dL 0.00-0 .40 Not Available [facility] ([facility]) [address] [place], [address], 11/09/2023 16:06:47 11/08/19 24 11/09/2023 HEPAT IC FUNCT ION PANEL (7) alkaline phosphatase 53 IU/L 44-121 normal Not Available [facility] ([facility]) [address] [place], [address], 11/09/2023 16:06:47 11/08/19 24 11/09/2023 HEPAT IC FUNCT ION PANEL (7) AST (SGOT) 16 IU/L 0-40 normal Not Available [facility] ([facility]) [address] [place], [address], 11/09/2023 16:06:47 11/08/19 24 11/09/2023 HEPAT IC FUNCT ION PANEL (7) ALT (SGPT) 9 IU/L 0-32 normal Not Available [facility] ([facility]) [address] [place], [address], 11/09/2023 16:06:47 11/08/19 24 11/09/2023 ACUTE HEPAT ITIS hep A Ab, IgM Negati ve negati ve Not Available [facility] ([facility]) [address] [facility], [place], [address], 11/09/2023 16:06:48 11/08/19 24 11/09/2023 ACUTE HEPAT ITIS HBsAg screen Negati ve negati ve Not Available [facility] ([facility]) [address] [facility], [place], [address], 11/09/2023 16:06:48 11/08/19 24 11/09/2023 ACUTE HEPAT ITIS hep B core Ab, IgM Negati ve negati ve Not Available [facility] ([facility]) [address] [facility], [place], [address], 11/09/2023 16:06:48 11/08/19 24 11/09/2023 ACUTE HEPAT ITIS HCV Ab Non Reacti ve non reacti ve Not Available [facility] ([facility]) [address] [facility], [place], [address], 11/09/2023 16:06:48 11/08/19 24 11/09/2023 ACUTE HEPAT ITIS interpretati on: Commen t Not infec emerson with HCV unles s early or acute infec tion is suspe cted (whic h may be delay ed in an immun ocomp romis ed indiv idual ), or other evide nce exist s to indic ate HCV infec tion. Not Available [facility] ([facility]) [address] [facility], [place], [address], 11/09/2023 16:06:48 11/08/19 24 11/09/2023 IRON AND TIBC iron bind.cap.(TI BC) 432 ug/dL 250-45 0 normal Not Available [facility] ([facility]) [address] [facility], [place], [address], 11/09/2023 16:06:49 11/08/19 24 11/09/2023 IRON AND TIBC UIBC 396 ug/dL 131-42 5 normal Not Available [facility] ([facility]) [address] [place], [address], 11/09/2023 16:06:49 11/08/19 24 11/09/2023 IRON AND TIBC iron 36 ug/dL 27-159 normal Not Available [facility] ([facility]) [address] [place], [address], 11/09/2023 16:06:49 11/08/19 24 11/09/2023 IRON AND TIBC iron saturation 8 % 15-55 alert low Not Available [facility] ([facility]) [address] [place], [address], 11/09/2023 16:06:49 11/08/19 24 11/09/2023 ANTI- ELMO H MUSCL E/PIETRO OCHON D. actin (smooth muscle) antibody 5 units 0-19 Negat eva 0 - 19 Weak posit eva 20 - 30 Moder ate to stron g posit eva >30 Actin Antib odies are found in 52-85 % of patie nts with autoi mmune hepat itis or chron ic activ e hepat itis and in 22% of patie nts with prima ry bilia ry cirrh osis. Not Available [facility] ([facility]) [address] [place], [address], 11/09/2023 16:06:49 11/08/19 24 11/09/2023 ANTI- ELMO H MUSCL E/PIETRO OCHON D. mitochondria l (M2) antibody <20.0 units 0.0-20 .0 Negat eva 0.0 - 20.0 Equiv ocal 20.1 - 24.9 Posit eva >24.9 Mitoc hondr ial (M2) Antib odies are found in 90-96 % of patie nts with prima ry bilia ry cirrh osis. Not Available [facility] ([facility]) [address] [place], [address], 11/09/2023 16:06:49 11/08/19 24 11/09/2023 FARRUKH+L IPASE amylase 87 U/L 31-110 normal Not Available [facility] ([facility]) [address] [place], [address], 11/09/2023 16:06:50 11/08/19 24 11/09/2023 FARRUKH+L IPASE lipase 33 U/L 14-72 normal Not Available [facility] ([facility]) [address] [place], [address], 11/09/2023 16:06:50 11/08/19 24 11/09/2023 GGT GGT 3 IU/L 0-60 normal Not Available [facility] ([facility]) [address] [place], [address], 11/09/2023 16:06:51 11/08/19 24 11/09/2023 CERUL OPLAS MIN ceruloplasmi n 27.4 mg/dL 19.0-3 9.0 Not Available [facility] ([facility]) [address] [place], [address], 11/09/2023 16:06:51 11/08/19 24 11/09/2023 CARLEEN TIN ferritin 11 NG/mL 15-150 below low normal Not Available [facility] ([facility]) [address] [place], [address], 11/09/2023 16:06:52 11/08/19 24 11/09/2023 PHUONG C DISEA SE PANEL endomysial antibody IgA Negati ve negati ve Not Available [facility] ([facility]) [address] [place], [address], 11/10/2023 06:08:09 11/08/19 24 11/09/2023 PHUONG C DISEA SE PANEL T-transgluta minase (ttg) IgA <2 U/mL 0-3 Negat eva 0 - 3 Weak Posit eva 4 - 10 Posit eva >10 Tissu e Trans gluta dayanna e (tTG) has been ident ified as the endom ysial antig en. Studi es have demon str- ated that endom ysial IgA antib odies have over 99% speci ficit y for glute n sensi tive enter opath y. Not Available [facility] ([facility]) [address] [facility], [place], [address], 11/10/2023 06:08:09 11/08/19 24 11/10/2023 PHUONG C DISEA SE PANEL immunoglobul in A, qn, serum 128 mg/dL 87-352 normal Not Available [facility] ([facility]) [address] [facility], [place], [address], 11/10/2023 06:08:09 11/08/19 24 11/10/2023 PREAL BUMIN prealbumin 18 mg/dL 12-34 Not Available [facility] ([facility]) [address] [facility], [place], [address], 11/10/2023 06:08:11 08/30/19 24 08/30/2023 US, head + neck, soft tissu e US Soft Tissue Head/N raquel Reason : R94.6 ABNORM AL RESULT S OF THYROI D FUNCTI ON STUDIE S COMPAR JEFFERY: None FINDIN GS: RIGHT THYROI D LOBE: 4.4 x 1.6 x 1.2 cm, volume 4.5 cc. Normal homoge neous echote xture. Normal parenc hymal vascul arity. Nodule #1: Partia lly imaged , upper pole, 1.2 x 1.2 x 0.8 cm (trans verse right cine 8/109, sagitt al right cine 68/118 ), solid, hypoec hoic, not taller -than- wide, ill-de fined margin , no echoge zain foci. TI-RAD S Catego ry 4. Nodule #2: Lower pole at inferi ormost margin , 0.5 x 0.5 x 0.5 cm, solid, very hypoec hoic, not taller -than- wide, lobula emerson margin , no echoge zain foci. TI-RAD S Catego ry 5. Solutions Consultant al vascul ar flow noted. LEFT THYROI D LOBE: 4.2 x 1.2 x 1.4 cm, volume 3.5 cc. Normal homoge neous echote xture. Normal parenc hymal vascul arity. Nodule #1: Upper pole, 1.5 x 0.7 x 0.8 cm, predom inatel y solid, echoge nicity cannot be determ ined, not taller -than- wide, partia lly obscur ed margin , macroc alcifi cation s. TI-RAD S Catego ry 4. Additi onal scatte red subcen timete r nodule s which do not meet TI-RAD S criter ia for imagin g follow -up. ISTHMU S: Thickn ess: 0.3 cm. IMPRES MARC: 1.5 cm left upper pole 1.5 cm TI-RAD S Catego ry 4 nodule . FNA could be consid ered for furthe r evalua tion. 0.5 cm right lower pole TI-RAD S Catego ry 5 nodule . Follow -up ultras ound recomm ended in one year. In additi on, a parath yroid adenom a could have a simila r appear ance, and correl ation with parath yroid hormon e levels recomm ended. Right upper pole 1.2 cm TI-RAD S Catego ry 4 nodule . The ill-de fined appear ance of this nodule raises the possib ility of focal thyroi ditis. Correl ation with thyroi d functi on tests recomm ended, as well as follow -up ultras ound in one year. TI-RAD S 2017 refere nce: Marco Antonio garner FN, Nadya bird WD, Arsen EG, et al. ACR Thyroi d Imagin g, Report ing and Data System (TI-RA DS): White Paper of the ACR TI-RAD S Commit hong. J Am Uma Radiol . Volume 14, Issue 5 , 587 595. https: //doi. org/10 .1016/ j.jacr .2017. 01.046 ACR TI-RAD S recomm endati ons: TR1 and TR2: No FNA or follow -up. TR3: FNA if greate r than 2.4 cm, follow -up if 1.5-2. 4 cm in 1, 3 and 5 years. TR4: FNA if greate r than 1.4 cm, follow -up if 1.0-1. 4 cm in 1, 2, 3 and 5 years. TR5: FNA if greate r than 0.9 cm, follow -up if 0.5-0. 9 cm every year for 5 years. TI-RAD S calcul ator: http:/ [email or web address] Rockmelt. Minteos/ WSN: [id number] Orderi ng Physic khari: Claire Hand Dictat ed By: Mark Marcus MD Dictat ed Date/T candice: 12:28 p Review ed By: Mark Marcus MD Signed By: Mark Marcus MD Signed Date/T candice: 12:28 pm Transc ribed By: DOMENICA Transc ribed Date/T candice: 12:23 pm Patien t Class: Outpat ient [facility] (Outpt Imaging) [address] [facility], [place], [address], 09/08/2023 18:26:32 08/30/19 24 08/30/2023 US, thyro id No observ ation record ed. [email or web address] [address] [place], [address], 08/30/2023 16:29:55 Result Notes None recorded. Problems Name Problem SNOMED Code Status Onset Date Resolution Date Notes Provider Name and Address Organization Details Recorded Time Mixed anxiety and depressiv e disorder 113448397 Active 2021 Amara Hand MD [address] [facility] [address], [facility] [place], [address], [facility] 2 17:34:23 History of SARS-CoV- 2 [id number] 9469692 Active 2021 Roger Ramirez MA null, [facility] 2 13:21:21 History of calculus of kidney 768038212 Active 2012 Yaquelin ventura [facility], [facility] 2 13:35:13 Repair of umbilical hernia Completed 201106/16/2022 Amara Hand MD [address], [place], [address], [facility] 3 12:46:51 Asthma 335987775 Active 2021 Amara Hand MD [address], [place], [address], [facility] 2 13:52:54 Acute inflammat ory demyelina ting polyneuro florentino 12227163721 109 Completed 202106/16/2022 Amara Hand MD [address], [place], [address], [facility] 3 12:46:17 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 566391188 Active 2022 Amara Hand MD [address], [place], [address], [facility] 3 12:46:10 History of repair of umbilical hernia 413774038 Active 2022 Amara Hand MD [address], [place], [address], [facility] 3 12:46:46 Acute on chronic pancreati tis 556779122 Completed 202209/22/2023 Amara Hand MD [address], [place], [address], [facility] 4 17:11:49 Alcohol dependenc e 25046034 Completed 202209/22/2023 Amara Hand MD [address], [place], [address], [facility] [facility] 4 17:11:23 Generaliz ed onset epileptic seizure 296467269 Active 2022 Amara Hand MD [address], [place], [address], [facility] 3 12:47:22 Essential hypertens ion 63736646 Active 2022 Amara Hand MD [address], [place], [address], [facility] 3 12:56:00 Subclinic al hypothyro idism 16965866 Active 2022 Amara Hand MD [address], [place], [address], [facility] 3 16:48:21 Neuropath y 099253750 Active 2022 Amara Hand MD [address], [place], [address], [facility] 3 16:52:53 Body mass index 30+ - obesity 368654320 Completed 202209/22/2023 Amara Hand MD [address], [place], [address], [facility] 4 17:12:05 Obesity 125224018 Completed 202209/22/2023 Amara Hand MD [address], [place], [address], [facility] 4 17:13:01 Thyroid nodule 863599541 Active 2023 Amara Hand MD [address], [place], [address], [facility] 4 19:57:28 History of deliberat e self harm 518804864 Active 2023 Amara Hand MD [address], [place], [address], [facility] 4 17:08:03 Chronic alcoholis m in remission 371790713 Active 2023 Amara Hand MD [address], [place], [address], [facility] 4 17:11:07 History of pancreati tis 93611889104 107 Active 2023 Amara Hand MD [address], [place], [address], [facility] 4 17:11:47 Disorder of autonomic nervous system 23223410 Active [address] cyndi Poole PA-C [address], [place], [address], [facility] 4 16:18:30 Abnormal liver function 05874126 Completed 202312/28/2023 Amara Hand MD [address], [place], [address], [facility] 4 10:57:35 Unintenti onal weight loss 108614177 Completed 202312/28/2023 Amara Hand MD [address], [place], [address], [facility] 4 11:02:15 Abnormal feces 753391056 Completed 202312/28/2023 Amara Hand MD [address], [place], [address], [facility] 4 10:57:09 Electroni c cigarette user 915273630 Active 2023 Amara Hand MD [address], [place], [address], [facility] 4 11:02:46 Problem Notes None recorded. Procedures Surgical History Date Name Laterality Status Provider Name and Address Organization Details Recorded Time 05/17/19 24 endoscopic endometrial polypectomy completed Amara Hand MD [address] [facility] [address], [place], [address], [place] [facility] 12/28/2023 11:09:10 01/26/20 23 Most Recent Mammogram completed Joceline Bingham [facility] 01/26/2023 11:36:23 10/31/19 23 procedure on vein completed Yaquelin heart [place] [facility] 05/01/2023 15:59:50 03/18/20 13 Caesarean Section completed Roger Ramirez MA [facility] 09/27/2021 13:13:08 07/16/19 13 Hernia Repair completed Roger Ramirez [facility] 09/27/2021 13:13:08 11/15/19 07 Tonsillectomy completed Roger Ramirez MA [facility] 09/27/2021 13:13:08 11/15/19 06 Adenoidectomy completed Roger Ramirez [place] [facility] 09/27/2021 13:13:08 Imaging Results Imaging Date Name Status LastModified by Organiz ation Details LastModified Time 08/30/2023 US, head + neck, soft tissue completed [facility] ([facility]) [address] [place], [address], 09/08/2023 18:26:32 08/30/2023 US, thyroid completed [facility] [address], [place], [address], 08/30/2023 16:29:55 Procedure Notes None recorded. Medical Equipment None Reported. Allergies Allergen ID Allergen Name Allergen Category Reaction Reaction Severity Criticality Documentation Date Start Date Code Code System Note Provider Name and Address Organization Details Recorded Time 90378 Product containin g penicilli n (product) medicatio n rash Not available Not available 09/27/2021 106879 9613 SNOMED ANDI Castrejon, [facility] 13:11:47 Medications Name Sig Start Date Stop [...] HOLD Not Available Not Available Not Available ashwagand kaur extract 1300 mg capsules - 1 po daily 07/17/ 2024 09/13 /2024 completed ON HOLD Not Available Not Available Not Available Vitals Date Recorded Body height Body mass index (BMI) Body weight Heart rate Oxygen saturation Oxygen saturation in Arterial blood by Pulse oximetry Body temperature Systolic blood pressure Diastolic blood pressure Provider Name and Address Organization Details Last Updated DateTime 4 163.83 cm 29.7 kg/m2 23647.2 6 g 110 /min 98 % 98 % 98.7 [degF] 126 mm[Hg] 90 mm[Hg] Yaquelin ventura [place] [facility] 4 13:52:16 Date Recorded Body height Body mass index (BMI) Body weight Heart rate Oxygen saturation Oxygen saturation in Arterial blood by Pulse oximetry Body temperature Systolic blood pressure Diastolic blood pressure Provider Name and Address Organization Details Last Updated DateTime 4 163.83 cm 28.7 kg/m2 28643.7 g 92 /min 97 % 97 % 98.2 [degF] 126 mm[Hg] 81 mm[Hg] Joanne Pitt MA [facility] 4 15:45:48 Date Recorded Body height Body mass index (BMI) Body weight Heart rate Oxygen saturation Oxygen saturation in Arterial blood by Pulse oximetry Body temperature Systolic blood pressure Diastolic blood pressure Provider Name and Address Organization Details Last Updated DateTime 4 163.83 cm 28.7 kg/m2 03049.7 g 97 /min 97 % 97 % 98.2 [degF] 133 mm[Hg] 89 mm[Hg] Joanne Pitt MA [facility] 4 10:33:54 Date Recorded Body height Body mass index (BMI) Body weight Heart rate Oxygen saturation Oxygen saturation in Arterial blood by Pulse oximetry Body temperature Systolic blood pressure Diastolic blood pressure Provider Name and Address Organization Details Last Updated DateTime 4 163.83 cm 28.7 kg/m2 96745.7 g 75 /min 98 % 98 % 98.1 [degF] 110 mm[Hg] 75 mm[Hg] Rohan tyler MA [facility] 4 10:58:10 Date Recorded Body height Body mass index (BMI) Body weight Oxygen saturation Oxygen saturation in Arterial blood by Pulse oximetry Heart rate Body temperature Systolic blood pressure Diastolic blood pressure Provider Name and Address Organization Details Last Updated DateTime 5 163.83 cm 28.3 kg/m2 07321.3 3 g 98 % 98 % 79 /min 98.3 [degF] 117 mm[Hg] 77 mm[Hg] Leonila Ferrer MA [facility] 5 09:23:12 Social History Question Answer Notes LastModified by Organizat ion Details LastModified Time Tobacco Smoking Status Former Smoker ANDI Aviles, [facility] 12/23/2021 14:42:31 What Is Your Level [...] Or Vape? Current User Of Electronic Cigarettes [email or web address] Information not available 12/23/2021 What Is Your [...] How Many Children Do You Have? 2 [place] And Isabelida Information not available 12/23/2021 What Is Your Current Pack Years? 10packyears [email or web address] Information not available 12/23/2021 Do You Use [...] Use Any Illicit Or Recreational Drugs? Yes [email or web address] Information not available 12/23/2021 Do You Use Sunscreen Routinely? Yes Information not available 09/27/2021 How Many Years Have You Smoked Tobacco? 17 Information not available 12/23/2021 Do You Or Have You Ever Used Any Other Forms Of Tobacco Or Nicotine? Yes Information not available 12/23/2021 How Many Years [...] Not available 09/27/2021 13:34:35 Father Essential hypertension [email or web address] Not available 14:23:12 Medical History Condition Response Varicose Veins Y Anxiety Disorder Y Diabetes Y Anemia Y Depression Y Chicken Pox Y Hypothyroidism Y Gynecological History Statement/Question Response Date of Last Pap Smear Date of Last Colonoscopy Most Recent Mammogram 01/25/2023 Most Recent Bone Density Obstetrics History GPAL:G 0 P 0 0 0 0 Immunizations Vaccine Type Date Status Note Provider Name and Address Organization Details Recorded Time COVID-19, mRNA, LNP-S, PF, 30 mcg/0.3 mL dose 08/14/19 21 completed ANDI Castrejon [facility] 09/27/2021 13:12:19 Tdap 09/03/19 20 completed ANDI Castrejon, [facility] 09/27/2021 13:12:19 COVID-19, mRNA, LNP-S, PF, 30 mcg/0.3 mL dose 09/05/19 21 completed ANDI Castrejon [facility] 09/27/2021 13:12:19 Influenza, split virus, trivalent, preservative 01/09/20 12 completed ANDI Castrejon [facility] 09/27/2021 13:12:19 Influenza, split virus, quadrivalent, PF 12/24/19 22 cancelled patient objection Amara Hand MD [address] [address], [place], [address], [facility] 12/23/2021 15:12:49 Past Encounters Encounter ID Performer Location Encounter Start Date Encounter Closed Date Diagnosis/Indication Diagnosis SNOMED-CT Code Diagnosis ICD10 Code Diagnosis Note [id number] Rody Del Rosario Main Office [address] [place] [address] 09/27/2021 13:10:43 09/27/2021 14:22:26 Fatigue 81554443 R53.83 likely related to long covid, however will get labs Hyperlipidemia 64778574 E78.5 Hepatitis C screening 41 0872083 Z11.59 Screening for malignant neoplasm of cervix 157373079 Z12.4 Patient ne w to provider [id number] 21844 Z76.89 Patient was counseled on healthy diet, exercise and nutrition, Body mass index is 23.7kg/m?? . Last Colonoscop y:Date:Res ult:Plan: not due, asymptomat ic, no fhx Last Mammogram: Date:Resul t:Plan: not due, asymptomat ic, no fhx Last Pap smearDate: Result:Miguel Angel n: Notes last was done mid 2013, referral provided. Bone density scanDate:R esult:Plan : not due Vaccines:T dAP: 09/03/2019 hingrix: Not hnoBST20: Not dueInfluen za: not in seasonCovi d: 08/13/20, 09/04/20 Impairment of balance 38 3972319 R26.89 Could be related to neuropathy above. Dyspnea on exertion 6084 5006 R06.09 Related to post covid, will get complete echo with PFT.ECG Done in ED reviewed. Past pregn saloni history of gestational diabetes mellitus 461672730 Z86.32 Neuropathy 350026919 G62 .9 Could be related to previous etoh use.b complex and duloxetine sent.Will consider EMG if sx persist Mixed anxi ety and depressive disorder 092899325 F41.8 Component PTSD associated with covid.Will start with duloxetine augment prn hydroxyzin e, she was advised to stop promethazi ne.Risk of sedition discussed, advised to not drive, operate motor vehicle or machinery while on medication till she knows how she feels.Jesus es homicidal or suicidal Ideation. Snoring symptoms 0924284 00 R06.83 Notes had before even etoh intake, with b/l edema with snoring will get sleep study. Admits alcohol use 31762 9306 Z72.89 Notes last use >7 days ago so sx unlikely related to withdrawal .Advised to avoid all etoh beverage.W ill send b complex Tachycardia 5277928 R00. 0 Recent ED visit had poc echo, d-dimer, trop, LE doppler done, all negLikely related to anxiety.Hy dration enforced. History of SARS-CoV-2 29 23848760 54113328 Z86.16 see above Transition of care from emergency department to self-care 4482928857 70365 Z76.89 ED note reviewed. [id number] Amara Hand MD Main Office [address] [facility] [place] [address] 11/29/2021 07:50:52 11/29/2021 15:53:11 Mixed anxiety and depressive disorder 691748861 F41.8 Component PTSD associated with covid.Trie d duloxetine after she stopped etoh, lft was monitored she was on 60 notes no improvemen t wanted to stop and try zolft instead, will start cross geoff.The plan is to get her down to 40 mg extended release, and to start low-dose sertraline at 25 mgShe was reminded to recheck her liver function.S he was advised to continue to refrain from drinking alcohol.Wi ll follow up in PE. Neuropathy 653621133 G62 .9 Advised her to continue B complex with folic acid, given that we are planning to wean her off of duloxetine once she has 20 mg I will start her on low-dose gabapentin .Referral to rheumatolo gy and neurology was made to eval this further as well.EMG ordered. Asthma 412802246 J45.90 9 Pulmonary function test noted some improvemen t with bronchodil ators and she did note that she had some dyspnea post COVID I have gone ahead and thus started her on some albuterol as needed as needed. The risk of tachycardi a and jitterines s was advised she is aware to use this as needed. Diastolic dysfunction 35 48313 I51.9 She recently underwent an echo which suggests grade 1 diastolic dysfunctio n given her young age I have referred her to the cardiologi st I suspect this may be precipitat ed by her excessive alcohol intake possibly with her bout of COVID. [id number] Amara Hand MD Main Office [address] [facility] [place] [address] 12/23/2021 14:23:02 12/23/2021 15:11:46 Mixed anxiety and depressive disorder 289338755 F41.8 Component PTSD associated with covid.Trie d duloxetine after she stopped etoh, lft was monitored she was on 60 notes no improvemen t wanted to stop and try zolft instead, will start cross geoff.The plan is to get her down to 40 mg extended release, and to start low-dose sertraline at 25 mgShe was reminded to recheck her liver function.W ill taper duloxetine 20mg, start sertraline 50She was advised to continue to refrain from drinking alcohol. Neuropathy 565445609 G62 .9 Advised her to continue B complex with folic acid, given that we are planning to wean her off of duloxetine once she has 20 mg I will start her on low-dose gabapentin .Referral to rheumatolo gy and neurology was made to eval this further as well.EMG ordered. Asthma 877422780 J45.90 9 Stable on inhalers Diastolic dysfunction 35 99430 I51.9 She recently underwent an echo which suggests grade 1 diastolic dysfunctio n given her young age I have referred her to the cardiologi st I suspect this may be precipitat ed by her excessive alcohol intake possibly with her bout of COVID.Marcus gunderson card in examination 744334690 Z00.00 Patient was counseled on healthy diet, exercise and nutrition, Body mass index is 23.7kg/m?? . Last Colonoscop y:Date:Res ult:Plan: not due, asymptomat ic, no fhx Last Mammogram: Date:Resul t:Plan: not due, asymptomat ic, no fhx Last Pap smearDate: Result:Miguel Angel n: Notes last was done mid 2013, referral provided. Bone density scanDate:R esult:Plan : not due Vaccines:T dAP: 09/03/2019 hingrix: Not endIGI99: Not dueInfluen za: declinedCo vid: 08/13/20, 09/04/20, advised bivalent Needs infl uenza immunization 599981211 Z23 Cold feet 932700620 R20. 8 Seeing rheum will have vascular eval to ensure no vascular derangemen t. [id number] Zakiya Webb Main Office [address] [place] [address] 06/16/2022 09:49:10 06/16/2022 10:52:35 Mixed anxiety and depressive disorder 724974537 F41.8 I will hold on any further medication adjustment at this time as the most recent one was done by her neurologis t and now that she is seeing psychiatri st this month, hopefully they can continue the care onwards. She was given resources as well should she need in the interim this includes [facility] urgent care number and also [facility] crisis hotline should she have any intrusive thoughts. Acute on c hronic pancreatitis 827570093 K85.80 I discussed with her the risk of leaving AGAINST MEDICAL ADVICE and the risk of acute pancreatit is including ARDS and demise. At present her vitals are relatively stable. No N/V, her symptoms are relatively mild, I did advise her if her symptoms get worse or she has any difficulty breathing or worsening abdominal pain she needs to go to the emergency room soon as possible. Slow diet advancemen t as tolerated, hydration was enforced she was advised to cut down on alcohol intake, I will order an amylase and lipase. We will also do repeat liver function test as well. I did put in a stat gastroente rology referral so he can be further evaluated. Pain seems to be generalize d and more related to her neurologic al condition will hold any opiod at this time as she seems comfortabl e. Generalize d onset epileptic seizure 138852012 G40.409 Likely related to etoh intakAdvis ed her to reach out to her neurologis t for an earlier appointmen t regarding this, I did order an EEG as well. However if she is able to get her EEG with the neurologis t sooner she was advised to cancel the one I ordered.Sh e was advised to refrain from driving for 6 months and until further evaluation is done. Alcohol dependence 29577 003 F10.20 I discussed the risks again with alcohol intake I gave her some resources such as [facility] where she can seek help including detoxifica tion. She was also advised to talk with psych at [facility] for this. 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 Transition of care 92816 24799 105 Z75.8 ED notes reviewed which took > 60 min. [id number] Amara Hand MD Main Office [address] [facility] [address] [place] [address] 06/14/2022 11:52:20 06/14/2022 18:15:57 [id number] Amara Hand MD Main Office [address] [facility] [address] [place] [address] 08/16/2022 13:20:52 08/16/2022 14:28:38 Cellulitis 339589986 L03.90 Wound is 2x1 cmSome drainage, area cleaned sterile technique, culture obtained, Steri strips placed.Td up to date.Advis ed, to keep dry avoid hydrogen peroxide.W ill start bactrimWou nd check 2 weeks.tyle nol for pain Tachycardia 9133462 R00. 0 She is in pain, no cp or shortness of breath.Fol lowed by cards in past. Elevated blood-pressure reading without diagnosis of hypertension 018838848 R03.0 Notes in pain, otherwise asymptomat ic, she will check home and let me know.BP follow up 2 weeks.Low sodium diet discussedC ounseled on diet/exerc iseAdvised to keep BP daily BP log and technique counseled. Red flags of HTN emergency discussed and when to go to ED. [id number] Amara Hand MD Main Office [address] [facility] [address] [place] [address] 09/01/2022 10:52:28 09/01/2022 11:55:09 Cellulitis 075912387 L03.90 Wound healing well, area of erythema has decreased. Small 0.2x0.2cm abrasion healing minimal area of erythema. Tachycardia 0927133 R00. 0 She is in pain, no cp or shortness of breath.Fol lowed by cards in past.She has anxiety, has been tachy as home as well.Low prb for PE. Sat well with no shortness of breath or calf tenderness . ECG reassuring .Will start beta rené as it will help with panic attack like sx, bp and HR, she was advised to let her cardiologi st know. Elevated blood-pressure reading without diagnosis of hypertension 215619790 R03.0 Asymptomat ic, home bp >130/80's9 0 will start beta rené for reasons above.She will keep checking bp has follow up with cardiology in 1 mo. [id number] Amara Hand MD Main Office [address] [facility] [address] [place] [address] 10/31/2022 15:24:28 11/01/2022 08:32:12 Tachycardia 5488681 R00.[address] is aware of Plan and she tells me is ok with plan.HR improved with bb rené, sx of palpitatio n improved.S he will cont to follow cardiology . Elevated blood-pressure reading without diagnosis of hypertension 423065589 R03.0 Advised to follow up with BP readings and let me know via portal.Myles l cont. current dose till PE. [id number] Amara Hand MD Main Office [address] [facility] [address] [place] [address] 12/25/2022 11:16:43 12/25/2022 12:06:01 Mixed anxiety and depressive disorder 909563376 F41.8 Followed by psych, advised to continue follow up with them.janine s active thoughts of self harm or harming others. Acute on c hronic pancreatitis 699907142 K85.80 Alcohol dependence 07982 003 F10.20 Has cut down on her drinking, continue to encourage to come off from etoh consumptio n. 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 Subclinica l hypothyroidism 57618242 E02 Adult heal th examination 008398710 Z00.00 Patient was counseled on healthy diet, exercise and nutrition, Body mass index is 32.4 kg/m??. Last Colonoscop y:Date:Res ult:Plan: not due, asymptomat ic, no fhx Last Mammogram: Date:Resul t:Plan: ordered Last Pap smearDate: Result:Miguel Angel n: Notes last was done mid 2013, referral provided. Bone density scanDate:R esult:Plan : not due Vaccines:T dAP: 09/03/2019 hingrix: Not [id number]: script given, given hx of etoh use.Influe nza: declined, understand s riskCovid: 08/13/20, 09/04/20, advised bivalent Screening for malignant neoplasm of breast 527626521 Z12.39 Screening for malignant neoplasm of cervix 498082443 Z12.4 Neuropathy 784307119 G62 .9 Advised to follow. Liver mass 955997168 R16 .0 Steatosis of liver 71703 1007 K76.0 Fatigue 12246309 R53.83 Z00.00 Hyperlipidemia 13352764 E78.5 Z00.00 Administra tion of pneumococcal vaccine 00264863 Z23 Influenza vaccination declined 922764456 Z28.21 Essential hypertension 32187369 I10 Bp still elevated borderline HR will start ARB. Aware needs to follow up so renal function and electrolyt e can be be check the risk of not following up or reschedule also discussed. Risk of angioedema also discussed. Low sodium diet discussedC ounseled on medication adherenceC ounseled on diet/exerc iseAdvised to keep BP daily BP log and technique counseled. Red flags of HTN emergency discussed and when to go to ED. Body mass index 30+ - obesity 292224902 Z68.30 E66.9 - Diet and exercise discussed- Patient made aware of risks of obesity- Encouraged to loose weight.- Avoid starchy and fatty food- Encouraged use of green vegetables and fruits Obesity 771287107 E66.9 [id number] Amara Hand MD Main Office [address] [facility] [address] [place] [address] 02/19/2023 15:31:03 02/20/2023 08:31:57 Essential hypertension 30926959 I10 Continue beta rené and arb, home bp appears well controlled , home cuff was compared in office on previous visit and was comparable ; Advised to get labs to check renal function and Electrolyt e while on the medication . Continue lifestyle modificati on this includes low-salt diet, regular exercises and continue to occasional ly check blood pressure at home. [id number] Amara Hand MD Main Office [address] [facility] [address] [place] [address] 05/01/2023 15:29:00 05/03/2023 13:00:56 Chronic inflammatory demyelinating polyradiculoneuropath y 040237959 G61.81 Alcohol dependence 73689 003 F10.20 Mixed anxi ety and depressive disorder 383550325 F41.8 Cobalamin deficiency 190 290529 E53.8 Generalize d onset epileptic seizure 134961067 G40.409 Upper resp iratory infection 00119787 J06.9 [id number] Amara Hand MD Main Office [address] [address] [place] [address] 08/13/2023 15:30:42 08/14/2023 08:38:50 Mixed anxiety and depressive disorder 820327258 F41.8 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 [id number] Amara Hand MD Main Office [address] [place] [address] 09/21/2023 13:40:24 09/21/2023 14:27:50 Chronic inflammatory demyelinating polyradiculoneuropath y 408276258 G61.81 Neuropathy 000332799 G62 .9 Mixed anxi ety and depressive disorder 875956875 F41.8 Nausea 941967681 R11.0 History of deliberate self harm 861469018 Z91.89 Chronic al coholism in remission 326030150 F10.21 Epigastric pain 01042209 R10.13 [id number] Bear Poole PA-C Main Office [address] [place] [address] 10/31/2023 15:35:09 10/31/2023 16:31:47 Abnormal feces 996009499 R19.5 will check for celiac dz - advised to not eat well for a few days, then check lab to avoid false negativeif +, may need egd in addition to colon to confirm dx Non-celiac gluten sensitivity 357787001 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 may need liver biopsy [id number] Amara Hand MD Main Office [address] [facility] [address] [facility] [place], [place] [phone] 12/28/2023 10:25:01 12/28/2023 11:29:09 Adult health examination [id number] Z00.00 Patient was counseled on healthy diet, exercise and nutrition, Body mass index is 28.7 kg/m??. Last Colonoscop y:Date:Res ult:Plan: not due, asymptomat ic, no fhx Last Mammogram: Date: 01/25/23Re sult: Elizabethad -1Plan: ordered Last Pap smearDate: Result:Miguel Angel n: Notes last was done mid 2013, referral provided. Bone density scanDate:R esult:Plan : not due Vaccines:T dAP: 09/03/2019Z rita Rec: Not [id number]: declines and understand s risk.Influ jorge l: declined, understand s risk.Covid : encouraged updated vaccine Advised lab after Jan 14.Remind ed to get stool test. Immunizati on status reviewed. Will screen based on risk factors. Regular dental and ophtho care advised as well as seat belt and sunscreen use. Distracted driving discussed. Medication reconciled . Mixed anxi ety and depressive disorder [id number] F41.8 In the process to establish with psych again, she left stepping stone.jesus es active thoughts of self harm or harming others. 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 Subclinica l hypothyroidism 85610650 E02 Follows endo Screening for malignant neoplasm of breast 943865133 Z12.39 Neuropathy 588628533 G62 .9 Follows neurology Hyperlipidemia 99247673 E78.5 Z00.00 Administra tion of pneumococcal vaccine 52134235 Z23 Essential hypertension 58393061 I10 Held per neurology rec due to CIDP. Influenza vaccination declined 440954842 Z28.21 Chronic al coholism in remission 495963481 F10.21 Drink free, 1 yr now, I congratula emerson here. Generalize d onset epileptic seizure [id number] G40.409 Followed by neurology. Mood disorder 32453714 F 39 Denies any thoughts of self harm and harming others. [id number] Rody Del Rosario Main Office [address] [facility] [address] [facility] [place] [phone] 01/24/2024 10:41:30 01/24/2024 11:15:35 Shoulder pain 21294526 M25.511 x4 days-tende rness to palpation over the should blade-has FROM, motor strength intact-has tried OTC pain medication s with minimal relief-pos sible flare up of CDIP-pt interested in trialling muscle relaxant-d iscussed risks/bene fits, AE Pain of ri ght elbow joint [id number] 2391978 M25.521 x4 days; lateral epicondyle radiating to shoulder-s harp/ache pain that is constant throughout the day, worsens with movements of the elbow-jesus es of any known repetitive movements, trauma, overuse-no swelling or skin discolorat ion appreciate d-tendinit is vs a flare up of CDIP-has been applying ice/heat, taking tylenol/ib uprofen, and wearing a brace for support-pt plans to contact her neurologis t to update him on current symptoms-w ill provide PT and discussed to continue with conservati ve radha ts at home [id number] Bear Poole PA-C Main Office [address] [facility] [address] [facility] [place] [phone] 05/27/2024 09:06:00 05/27/2024 09:51:32 Mixed anxiety and depressive disorder [id number] F41.8 In the process to establish with [...] niecy 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 598411001 G61.81 stable, cont f/u c neuro - next in 2 days Health Concerns Section Related Observation LastModified by Organization Detai ls LastModified Time None Recorded Concern Status LastModified by Organization Details LastModified Time None Recorded Advance Directives Directive None Recorded Payers Encounter Date Sequence Insurance Name Policy Number Policy Olsen Covered Member ID Olsen Member ID Guarantor Name 09/21/2023 1 ED [facility] [place] [place] [id number] Jim Battles [id number] Olimpia Battles 10/31/2023 1 ED [facility] [place] [place] [id number] Jim Battles [id number] Olimpia Battles 12/28/2023 1 ED [facility] [place] [place] [id number] Jim Battles [id number] Olimpia Battles 01/24/2024 1 ED [facility] [place] [place] [id number] Jim Battles [id number] Olimpia Battles 05/27/2024 1 ED [facility] [place] [place] [id number] Jim Battles [id number] Olimpia Battles Notes Date Note Type Note Provider Name and Address Organization Details Recorded Time 09/21/2023 text/html NauseaReported bypatient.Locationepig astric Quality:improving Durationpresent for 1-6 months Contextno drug/alcohol abuse; no one else with similar symptoms Associated Symptoms:no excess gas; no fever; no cholesterol issues; no vomiting; no dry heaves; no heartburn;abdominal pain(resolved);diarrhe a(1 episode, resolved.);weight loss;muscle aches;muscle weakness(better with gammaplex)Notes:Reji staley presents for a visit, noting that she has been feeling off lately. She reports an increase in anxiety and a worsening of her neuropathic pain following the cessation of duloxetine. She has been taking multiple supplements, including Ashwagandha extract, castor oil, black cohosh extract, evening primrose oil, feverfew extract, inositol, a liver complex, turmeric, vitamin E, bacopa, and a mushroom complex, b complex, vitamin D, folic acid. She also endorses to marijuana use. Duloxetine was discontinued two weeks ago due to elevated liver function tests (LFTs). She also reports a decreased appetite and significant weight loss, approximately 25 pounds over the last two months. Olimpia experiences nausea accompanied by the urge to sneeze. She occasionally supplements her diet with additional protein shakes to help manage the changes in weight and loss of appetite. She had 1 episode to diarrhea when she used castor oil but it resolved. Olimpia follows up with a neurologist for her chronic inflammatory demyelinating polyneuropathy (CIDP) and neuropathy. Although she has attempted to contact her neurologist, she plans to follow up soon. She suspects she might be in a perimenopausal state rather than . Her CIDP appears to be controlled with Gammaplex, which she recently received. She believes that her current symptoms, including chronic muscle aches and weakness, are related to her CIDP, and these symptoms have shown some improvement with Gammaplex. Amara Hand MD [address], [phone], [facility] [place] 09/28/2023 18:09:32 10/31/2023 text/html reviewed recent pt case - pt interested in gi referralreviewed last ov note c CK on 6.7.24 - discussed possible gi referralstates her htbn has been intermittent, but mildly better lately on pepcidalso, her bowel habits are variable - vary from formed to loose 1-4 times/day, somewhat better lately as wellno brbpr, abd painshe cont to lose wt which she blames on stress Bear Poole PA-C [address] [address], [place], [phone], [facility] [place] 10/31/2023 20:21:49 12/28/2023 text/html Here for physica l exam visit. Reviewed chronic medications and existing medical conditions. Discussed age-appropriate screening guidelines as well as goals for fitness and weight management. Was Followed by psych for mental health she left practice due to not developing rapport, looking for new provider. Denies thoughts of self harm or harming at presents. Notes she thinks, she might be bipolar, is in the process of connect with new psychiatrist. Amara Hand MD [address] [address], [place], [address], [facility] 12/28/2023 11:24:25 01/24/2024 text/html Olimpia is a 43y r old F who presents for right elbow pain x4 days. Hx of CIDP (follows neurology). Reports since Sunday has had a constant right elbow sharp/ache pain that radiates the the shoulder. Does get infusions for her CIDP every 2 months. Pt is unsure if this is related to her condition. Reports the pain to be constant and is worsened with movements of the elbow. Pain to the lateral aspect of the elbow. Denies of any skin discoloration, swelling, repetitive movements, or known trauma to the area. Has been taking tylenol/ibuprofen at home, wearing a brace, and applying heat/ice to the area- all with minimal relief. Is scheduled to f/u with neurology next week for an EEG. Rody gomez, [facility] 02/04/2024 21:18:37 05/27/2024 text/html Anxiety/Depressi onRepo rted bypatient.Quality:mood worse;increased anxiety Severity:denies suicidal ideations Context:major life [...] ? if had SE Bear Poole PA-C [address] [address], [place], [phone], [facility] 05/27/2024 09:53:11 OBGyn Episode No OBEpisode recorded.
--- OUTSIDE RECORDS SUMMARY | 2024-06-16 11:49 | XMS_ITS | Clinical Summary ---
Author Organization [facility] Address [address] [place] [phone] Phone Care Team Providers Care Financial Reporting Consultant Name Role Phone Unavailable Primary Care Provider Unavailabl e Surgical History Surgery Date Site/Laterality Comments TONSILLECTOMY PROCEDURE: HISTORICAL TONSILLECTOMY ADENOIDECTOMY PROCEDURE: HISTORICAL ADENOIDECTOMY Medical History Medical History Date Comments Anxiety DX:Anxiety Depression DX:Depression Back strain 01/09/2012 DX:Back strain Umbilical hernia 01/09/2012 DX:Umbilical he rnia Acute back pain 04/01/2012 DX:Acute back pa in Family History Medical History Relation Name Comments Depression Father anxiety Heart attack Father Hypertension Father Depression Mother anxiety Relation Name Status Comments Father Alive Mother Alive Sister Alive Social History Tobacco Use Types Packs/Day Years Used Date Smoking Tobacco: Never Smokeless Tobacco: Never Alcohol Use Standard Drinks/Week Comments Yes 0 (1 standard drink = 0.6 oz pur e alcohol) Comments Unknown Sex and Gender Information Value Date Recorded Sex Assigned at Not on file Legal Sex Female 10:51 AM EST Gender Identity Not on file Sexual Orientation Not on file Obstetrics History Plan of Treatment Health Maintenance Due Date Last Done Comments Breast Cancer Screening 1982 DTaP,Tdap,and Td Vaccines (1 - Tdap) 2001 Hepatitis B Vaccines (1 of 3 - 19+ 3-dose series) 2001 Cervical Cancer Screening: P ap Smear 2003 COVID-19 Vaccine (2023-2 5 season) 2023 Influenza Vaccine (#1) 2023 01/09/2012 Depression Screening 01/22/2024 HIV Screening 01/22/2024 Hepatitis C Screening 01/22/2024 Social Influencers of Health Screening 01/22/2024 HIB Vaccines Aged Out No longer eligi ble based on patient's age to complete this topic HPV Vaccines Aged Out No longer eligi ble based on patient's age to complete this topic Hepatitis A Vaccines Aged Out No long er eligible based on patient's age to complete this topic IPV Vaccines Aged Out No longer eligi ble based on patient's age to complete this topic MMR Vaccines Aged Out No longer eligi ble based on patient's age to complete this topic Meningococcal ACWY Vaccine Aged Out N o longer eligible based on patient's age to complete this topic Meningococcal B Vacine Aged Out No lo nger eligible based on patient's age to complete this topic Pneumococcal Vaccine: Pediat rics (0 to 5 Years) and At-Risk Patients (6 to 64 Years) Aged Out No longer eligi ble based on patient's age to complete this topic RSV Immunization Patients Un tesha 20 months Aged Out No longer eligible b ased on patient's age to complete this topic Varicella Vaccines Aged Out No longer eligible based on patient's age to complete this topic Insurance
== END 2024-06-16 10:15 | disposition home or self-care (01) ==
LOC: HO.MRI 10:14
PROVIDERS: PCP Family Medicine; Visit Provider Psychiatry & Neurology Neurology
DX: G50.0 Trigeminal neuralgia (principal)
CPT/HCPCS: 70553; A9585

== ENCOUNTER → 2024-06-16 10:30 | Outpatient (BNV) | payer OTHER, SELFPAY | PROVIDERS: PCP Family Medicine; Visit Provider Radiology Diagnostic Radiology | DX: G50.0 Trigeminal neuralgia (principal) | CPT/HCPCS: 70553 ==

== ENCOUNTER 2025-01-29 09:42 | Outpatient (AMB) | payer OTHER, SELFPAY ==
--- NOTE | 2025-01-29 10:03 | MHC.OFFVIS ---
Intake Visit Reasons: 4mnth CIDP Allergies No Known Allergies Allergy (Verified 01/31/22 16:34) Medication List - Last Reconciled 01/29/25 by Erika Damian MD bupropion HCl 75 mg PO BID carbamazepine 200 mg PO BID cyclobenzaprine 5 mg PO TID PRN escitalopram oxalate 20 mg PO DAILY famotidine 40 mg PO DAILY HPI Comments Details: 44 yo woman with h/o Covid infection in Apr, previous h/o alcohol drinking, and symptoms of neuropathy a few weeks after. Her work up suggested CIDP. She had side effects from prednisone and was treated with ivIg. Mycophenelate was tried for a month and she did not refill it afterwards. Changing back to Gammaguard helped her and she was feeling much better. no side effects. She was also suffering from left trigeminal neuralgia, ADD associated with depression and anxiety. She is presenting with neuropathy and mood concerns. Her chronic neuropathy has led to muscle mass loss, primarily in the lower limbs, which has contributed to the development of drop foot. She has noted more frequent tripping incidents and wasting of her lower extremity muscles. The neuropathy symptoms have shown an upward progression affecting the upper limbs with tingling sensations and loss of sensation. For mood stabilization, she is on Lexapro, reporting alleviation in anger but persisting issues with focus. Her therapist has not altered her treatment, suggesting this should be done with her primary care provider if necessary. She has been undergoing regular intravenous immunoglobulin therapy for her condition, consisting of eight-week intervals for approximately six treatments and will be adjusted seasonally due to additional heat-induced discomfort. Additionally, the patient experiences intermittent speech difficulties characterized by slurred words, with no identifiable cause established, potentially linked to anxiety or stress. Her speech issues and menopausal symptoms contribute further to her sense of frustration, impacting her daily interactions and overall mental health. COUNTS INCLUDE 234 BEDS AT THE [facility] Medical History (Updated 01/29/25 @ 10:06 by Erika Damian MD) ADD (attention deficit disorder) Complex partial seizures CIDP (chronic inflammatory demyelinating polyneuropathy) Migraine Insomnia Depression with anxiety Peripheral neuropathy Review of Systems Const Details: - Neurological: Reports tingling and loss of sensation in upper limbs; Denies neuropathic pain - Musculoskeletal: Reports muscle wasting in feet and calves, drop foot, tripping more frequently - Psychiatric: Reports difficulty with focus, presence of mood stabilization with Lexapro - Gastrointestinal: Reports use of heartburn medication, famotidine - Speech: Reports occasional slurred speech - General: Reports frustration related to speech and menopause symptoms Physical Exam Neuro Other: Mental Status: Alert and oriented to person, place, and time. Normal attention. Normal spontaneous speech, fluency, and comprehension. No obvious issues with mood and memory. Affect is appropriate. Cranial Nerves: CN II: Visual barraza full to confrontation, visual acuity intact. CN III, IV, : Pupils equal, round, reactive to light and accommodation. Extraocular movements are normal. CN V: Facial sensation is normal. CN VII: Facial movements symmetrical. CN VIII: Hearing intact to bedside conversation is normal. CN IX, X: Palate elevates symmetrically. CN XI: Shoulder shrug and head turn symmetrical. CN XII: Tongue midline without atrophy or fasciculations. DTRs are 1+ in knees and absent in ankles. Gait: Cautious Extrapyramidal: Full facial expressions and blinking. No rigidity. Movements are appropriate with no tremor or abnormality. Speech: Normal; no dysarthria or tremor. Assessment & Plan Assessment & Plan (1) CIDP (chronic inflammatory demyelinating polyneuropathy): Comment: Meds tried for pain: Gabapentin, pregabalin, duloxetine [place] [facility] [place]: Mild cortical atrophy Neuropsychological eval in off in Mar 2024: Cognition OK, suggestive of ADD. LP at [facility] in Feb 2022: OP 9cm, WBCs 4, RBCs 0, Glu 72, Pro 78.4, IgG ind: WNL, OCBs: none Labs at [facility] in 2021: CMP ok, LFTs ok, B12 247, Folate 15.5, GRACE 80, Lyme neg, IF ok MRI brain at [place] in Nov 2021: mild diff central and cortical atrophy for her age, cortical is FP EMG/NCS LEs at off in Jan 2022: mod to severe axonal and demyelinating SM PN. Code(s): G61.81 - Chronic inflammatory demyelinating polyneuritis Category: Medical Plan Impression: a: CIDP b: Mood disorder Rec: a: Gammagard 30 g one dose every 3 months b: Escitaloprim 20mg a day c: She is seeing a behavioral therapist/provider and was advised to discuss further meds and treatment for mood disorder in that office. During the visit, we acknowledged the multifaceted impact of the patient's chronic neuropathy, mood disorders, and related conditions on her health. I addressed ongoing intravenous immunoglobulin (IVIG) therapy for neuropathy, currently scheduled every eight weeks, discussing the potential for transitioning to a three-month regimen aligned with seasonal considerations to mitigate thermal discomfort. Options for mood treatment were evaluated, advising further consultation with the patient's therapist for therapeutic adjustments, while maintaining the current Lexapro. Speech impairment attributed to anxiety was discussed, recommending stress management and minimizing symptom fixation. Coding Level of Care Code Est Pt Level 4 (81288) Diagnoses CIDP (chronic inflammatory demyelinating polyneuropathy) G61.81
--- OUTSIDE RECORDS SUMMARY | 2025-01-29 11:17 | XMS_ITS | Clinical Summary ---
Author Organization [facility] Address [address] [place] [phone] Phone Care Team Providers Care Limnology Teacher Name Role Phone Unavailable Primary Care Provider [...] Cervical Cancer Screening: P ap Smear 2003 HPV Vaccines (1 - 3-dose SCD M series) 2009 HIV Screening 01/22/2024 Hepatitis C Screening 01/22/2024 Social Influencers of Health Screening 01/22/2024 Depression Screening 04/16/2024 COVID-19 Vaccine (1 - 2023-2 5 season) 2024 Influenza Vaccine (#1) 2024 01/09/2012 RSV Immunization Adult Patie nts (1 - 1-dose 75+ series) 2057 HIB Vaccines Aged Out No longer eligi [...] age to complete this topic Meningococcal B Vaccine Aged Out No l onger eligible based on patient's age to complete this topic Pneumococcal Vaccine: Pediat rics (0 to 5 Years) and At-Risk Patients (6 to 49 Years) Aged Out No longer eligi ble based on patient's age to complete this topic RSV Immunization Patients Un tesha 20 months Aged Out No longer eligible b ased on patient's age to complete this topic Varicella Vaccines Aged Out No longer eligible based on patient's age to complete this topic Insurance
== END 2025-01-29 10:14 | disposition home or self-care (01) ==
LOC: HO.HSM 09:43
PROVIDERS: PCP Family Medicine; Referring Provider Family Medicine; Visit Provider Psychiatry & Neurology Neurology
DX: G61.81 Chronic inflammatory demyelinating polyneuritis (principal)
CPT/HCPCS: 99214